=== PATIENT | female | born 1975 | race Caucasian/White ===

== ENCOUNTER 2020-04-23 21:06 | Emergency (ER) | payer OTHER, SELFPAY ==
--- NOTE | 2020-04-23 21:13 | ED.WOUNDLAC ---
HPI - Wound/Laceration General Chief Complaint: Wound/Laceration Stated Complaint: cut hand Time Seen by Provider: 04/23/20 21:14 Source: patient and RN notes reviewed Mode of arrival: ambulatory Limitations: no limitations History of Present Illness HPI narrative: patient was using a crepe box tender doing some renovations at the house and she slipped and cut the palm of her left hand Onset (ago): minute(s) (10) Extremity Location: Left: hand Place: home Patient tetanus UTD: No Context: accidental and sharp object use Associated symptoms: pain Treatments prior to arrival: bandage Related Data Home Medications Medication Instructions Recorded Confirmed No Home Medications 04/23/20 04/23/20 Allergies Allergy/AdvReac Type Severity Reaction Status Date / Time No Known Allergies Allergy Verified 04/23/20 21:34 Review of Systems Review of Systems: All systems reviewed & are unremarkable except as noted in HPI and below PMFSH Past Medical History Medical History (Updated 04/23/20 @ 21:41 by Jhon Duncan MD) No active medical problems Surgical History Surgical History (Updated 04/23/20 @ 21:37 by Jhon Duncan MD) No history of previous surgery Social History Social History (Updated 04/23/20 @ 21:37 by Jhon Duncan MD) Smoking packs per day: 1 Smoking cigarettes per day: 20.0 Smoking status: Current every day smoker Tobacco type: cigarettes Alcohol intake: never Substance use: never Exam Const: General: healthy appearing and no acute distress Nutritional Appearance: well nourished Orientation/consciousness: patient oriented x3 HENMT: Head: normal to inspection Ears: external ears normal General nose exam: Normal external nose present Face and sinus: normal facial exam Mouth: Yes lip normal Eyes: Conjunctivae: conjunctivae normal Pupils: Equal, round and reactive pupils present EOM: EOMs intact bilaterally Neck: Neck: normal visual inspection Resp: Effort & Inspection: normal respiratory effort Auscultation: clear to auscultation bilaterally Cardio: Rate: regular rate Rhythm: regular rhythm GI: GI Palp: Yes Soft to palpation Auscultation: normal bowel sounds Back/Spine/Pelvis: Cervical Spine: cervical ROM normal Thoracic/Lumbar Spine: thoraco-lumbar ROM normal Neuro: General: patient oriented x3, moves all extremities and no focal motor deficits Speech: normal speech Gait exam (Neuro): Normal gait present Extrem: General: no pedal edema Left upper extremity: hand laceration palm central Details: linear (3.5 cm) and actively bleeding Psych: Appearance: grossly normal and well kempt Mental Status: mental status grossly normal Affect: normal affect Attitude: cooperative Thought content: Yes Normal thought content present Course Vital Signs Vital signs: Vital Signs Temperature 36.7 C 04/23/20 21:18 Pulse Rate 101 H 04/23/20 21:18 Respiratory Rate 16 04/23/20 21:18 Blood Pressure 137/87 04/23/20 21:18 Pulse Oximetry 100 04/23/20 21:18 Temperature 36.7 C 04/23/20 21:18 Pulse Rate 101 H 04/23/20 21:18 Respiratory Rate 16 04/23/20 21:50 Blood Pressure 137/87 04/23/20 21:18 Pulse Oximetry 100 04/23/20 21:18 Procedures Laceration Laceration 1: Date: 04/23/20 Time: 21:23 Site: hand Side (If applicable): left Size (cm): 3.5 Description: linear Depth: simple, single layer Local Anesthetic: lidocaine 1% Amount of anesthesia used (mL): 5 Pre-repair: wound explored and irrigated ====== Skin Level ====== Skin layer closed with: nylon Size (cm): 4-0 Number of sutures: 7 Technique: running ====== Subcutaneous Layer ====== ====== Muscle Layer ====== ====== Tendon Layer ====== Discharge Plan Discharge Clinical Impression: Laceration Patient Disposition: Home, Self-Care Condition: Stable Instructions:
[2020-04-23] MEDS: LIDOCAINE HCL 1% LOCAL INJ 20 ML VIAL INFILTRATE (21:16)
[2020-04-23 21:18] VITALS: BP 137/87; PULSE 101; RESP 16; TEMP 36.7; O2SAT 100
--- NOTE | 2020-04-23 21:32 | PC.NURSE ---
7 SUTURES PLACED BY ERP 4.0 DRESSING PLACED PER ERP ORDERS
[2020-04-23] MEDS: TETANUS,DIPHTHERIA,AC PERTUSSIS ADULT 0.5 ML (ADACEL) IM (21:35)
[2020-04-23 21:50] VITALS: RESP 16
== END 2020-04-23 21:52 | disposition home or self-care (01) ==
PROVIDERS: Emergency Provider Emergency Medicine
DX: S61.412A Laceration without foreign body of left hand, initial encounter (principal); W45.8XXA Other foreign body or object entering through skin, initial encounter
CPT/HCPCS: 12002; 90471; 90715; 99282